=== PATIENT | male | born 1955 | race Caucasian/White ===

== ENCOUNTER 2024-01-10 07:47 | Day surgery (SDC) | payer MEDICARE, SELFPAY ==
[2024-01-10] VITALS (11 sets, daily range): BP systolic 90–120; BP diastolic 48–73; BMI 58.6
[2024-01-10] MEDS: NSS 539 ML IV (08:57)
--- NOTE | 2024-01-10 12:08 | ITS.CL.CATH ---
[employer] - Catheterization
Cardiac Catheterization
Procedure Report:
CARDIAC CATHETERIZATION REPORT
Date of Procedure: 01/10/2024
Referring: Misha Robertson DO
Indication: Abnormal PET/CT preop
HEMODYNAMIC DATA
AO: 117/73
LV: 117/10
LEFT VENTRICULOGRAPHY: Normal ventricular wall motion with EF 62%
CORONARY ANGIOGRAPHY
Dominance: Right
Left Main: Normal
LAD: Normal
Circumflex: Normal
RCA: Normal dominant vessel
Closure Device: None-the procedure was performed via the right radial artery. The Omar's test was normal prior to the procedure.
Radiation (mGy): 368
DAP (cm2.Gy): 42.7
Fluoroscopy time: 3.0 minutes
CONCLUSIONS
1: Normal left ventricular function with EF 62%
2: Normal coronary arteries
Copy to: Watson Horvath DO, Debra Abdullahi MD
Ugo Reddy MD, [facility], [facility]
[2024-01-10] MEDS: NSS 1000 IV (12:33)
== END 2024-01-10 14:30 | disposition home or self-care (01) ==
LOC: CATH 07:47
PROVIDERS: ATTENDING PHYSICIAN Internal Medicine Cardiovascular Disease; FAMILY PHYSICIAN Family Medicine
DX: Z13.6 Encounter for screening for cardiovascular disorders (principal); I45.10 Unspecified right bundle-branch block; R94.31 Abnormal electrocardiogram [ECG] [EKG]; I10 Essential (primary) hypertension; R73.03 Prediabetes; E66.9 Obesity, unspecified; Z68.43 Body mass index [BMI] 50.0-59.9, adult; Z79.82 Long term (current) use of aspirin
CPT/HCPCS: 93458; C1894; Q9967